=== PATIENT | male | born 1985 | race Caucasian/White ===

== ENCOUNTER 2025-01-17 18:29 | Emergency (ER) | payer BC, SELFPAY ==
--- NOTE | ~2025-01-17 | XR_ITS ---
EXAM: XR foot RT min 3V DATE: 01/17/2025 18:51 HISTORY: foreign object in R toe . COMPARISON: None. FINDINGS: Normal mineralization. No fracture or dislocation. No lytic or blastic lesion. Joint space s are maintained. No erosion or periosteal change. Nonmetallic foreign body projecting to the lateral soft tissues of the second toe, without adjacent osseous involvement. IMPRESSION: No acute osseous finding in the right foot. Foreign body in the right second toe soft tis sues, likely Golf jeff. Reviewed, dictated and finalized at location K. IMPRESSION: No acute osseous finding in the right foot. Foreign body in the rig ht second toe soft tissues, likely Golf jeff.
[2025-01-17 18:33] VITALS: BP 169/87; PULSE 84; RESP 16; TEMP 36.2; O2SAT 99
--- NOTE | 2025-01-17 18:36 | ED_ITS ---
HPI - Extremity Injury (Lower) General Chief Complaint: Extremity Injury, Lower <Kena Gaines GARMENT MANUFACTURING SUPERVISOR - Last Filed: 01/17/25 18:39> Stated Complaint: impaled toe <Kena Gaines GARMENT MANUFACTURING SUPERVISOR - Last Filed: 01/17/25 18:39> Time Seen by Provider: 01/17/25 18:35 <Kena Gaines GARMENT MANUFACTURING SUPERVISOR - Last Filed: 01/17/25 18:39> Focused HPI: Patient is a 40-year-old male who presents to the ER with a foreign object stuck in his right foot 2nd toe. He reports his children had taken his long golf tees and set them standing up on the stairs. Patient reports he ran down the stairs and stepped on one of the golf tees. At the time of examination patient endorses full range of motion. He is unsure when he last received his tetanus vaccine. Patient denies any relevant medical history. GENERAL: Well-appearing, well-nourished, and in no acute distress. HEAD: Normocephalic, atraumatic. CHEST: Clear to auscultation. ?No respiratory distress. HEART: Regular rate and rhythm.? NEURO: ?Alert and oriented x3. Patient screened in triage and initial orders placed.? ?Additional care and disposition to be based upon?diagnostic testing and treatment. <Kena Gaines GARMENT MANUFACTURING SUPERVISOR - Last Filed: 01/17/25 18:39> Focused HPI: Patient is a 40-year-old male who presents to the ER with a foreign object stuck in his right foot 2nd toe. He reports his children had taken his long golf tees and set them standing up on the stairs. Patient reports he ran down the stairs and stepped on one of the golf tees. At the time of examination patient endorses full range of motion. He is unsure when he last received his tetanus vaccine. Patient denies any relevant medical history. GENERAL: Well-appearing, well-nourished, and in no acute distress. HEAD: Normocephalic, atraumatic. CHEST: Clear to auscultation. ?No respiratory distress. HEART: Regular rate and rhythm.? NEURO: ?Alert and oriented x3. Patient screened in triage and initial orders placed.? ?Additional care and disposition to be based upon?diagnostic testing and treatment. <Chanelle Ricks PA-C - Last Filed: 01/18/25 01:32> Source: patient <Chanelle Ricks PA-C - Last Filed: 01/18/25 01:32> Mode of arrival: ambulatory <Chanelle Ricks PA-C - Last Filed: 01/18/25 01:32> Limitations: no limitations <Chanelle Ricks PA-C - Last Filed: 01/18/25 01:32> History of Present Illness HPI Narrative: Agree with above HPI <Chanelle Ricks PA-C - Last Filed: 01/18/25 01:32> Related Data Allergies/Adverse Reactions: Allergies Allergy/AdvReac Type Severity Reaction Status Date / Time No Known Allergies Allergy Mild Verified 01/17/25 18:36 <Kena Gaines APRN - Last Filed: 01/17/25 18:39> Review of Systems Review of Systems: All systems reviewed & are unremarkable except as noted in HPI. <Chanelle Ricks PA-C - Last Filed: 01/18/25 01:32> All systems reviewed & are unremarkable except as noted in HPI and below <Chanelle Ricks PA-C - Last Filed: 01/18/25 01:32> PMFSH Past Medical History Medical History: Medical History Hyperlipidemia ADD (attention deficit disorder) without hyperactivity <Kena Gaines APRN - Last Filed: 01/17/25 18:39> Surgical History Surgical History: Surgical History History of incision and drainage 2010 - right hand MRSA <Kena Gaines APRN - Last Filed: 01/17/25 18:39> Social History Social History: Social History Smoking status: Never smoker Second hand tobacco smoke exposure: No Alcohol intake: current Substance use: never Substance use type: does not use Lack of Transportation: No Lack of Food: Never True Current Housing: I Have Housing Concerned About Future Housing: No Difficulty Paying Gas/Electric Bills: No Difficulty Paying for Meds: No Currently Unemployed: No Education: Bachelor's Degree Difficulty w/ Childcare or Family Care: No Living arrangements: with family Occupation/Education: occupation Gender identity (if verbalized by the patient): Male <Kena Gaines, TRINA - Last Filed: 01/17/25 18:39> Exam Narrative: GENERAL: Well appearing, well-nourished, non-toxic, in no acute distress. HEAD: Normocephalic, atraumatic. RESPIRATORY: Airway patent, respirations nonlabored. CARDIOVASCULAR: Regular rate and rhythm. Pedal pulses intact MUSCULOSKELETAL: Moves all extremities. Plastic golf jeff punctured through R 2nd toe lateral edge. No bleeding. TTP with manipulation of jeff. Sensation intact. Capillary refill intact. SKIN: Warm, dry, normal color. NEURO: A&O X3. Speech clear. PSYCHIATRIC: Appropriate mood and affect. Normal interaction. <Chanelle Ricks PA-C - Last Filed: 01/18/25 01:32> Course DEVELOPMENTAL EDUCATION INSTRUCTOR/PA Physician Supervision This visit was performed by both a physician and an APC. I performed all aspects of the MDM as documented. I performed my own examination and the actual procedure the foreign body removal which was completed successfully without difficulty. <Cleveland Benz MD - Last Filed: 01/18/25 06:14> Vital Signs Vital signs: Vital Signs Temperature 36.2 C L 01/17/25 18:33 Pulse Rate 84 01/17/25 18:33 Respiratory Rate 16 01/17/25 18:33 Blood Pressure 169/87 H 01/17/25 18:33 Pulse Oximetry 99 01/17/25 18:33 Temperature 36.2 C L 01/17/25 18:33 Pulse Rate 81 01/18/25 01:21 Respiratory Rate 15 01/18/25 01:21 Blood Pressure 153/82 H 01/18/25 01:21 Pulse Oximetry 99 01/18/25 01:21 <Kena Gaines, TRINA - Last Filed: 01/17/25 18:39> Vital Signs Temperature 36.2 C L 01/17/25 18:33 Pulse Rate 84 01/17/25 18:33 Respiratory Rate 16 01/17/25 18:33 Blood Pressure 169/87 H 01/17/25 18:33 Pulse Oximetry 99 01/17/25 18:33 Temperature 36.2 C L 01/17/25 18:33 Pulse Rate 81 01/18/25 01:21 Respiratory Rate 15 01/18/25 01:21 Blood Pressure 153/82 H 01/18/25 01:21 Pulse Oximetry 99 01/18/25 01:21 <MARVA Rice Last Filed: 01/18/25 01:32> Vital Signs Temperature 36.2 C L 01/17/25 18:33 Pulse Rate 84 01/17/25 18:33 Respiratory Rate 16 01/17/25 18:33 Blood Pressure 169/87 H 01/17/25 18:33 Pulse Oximetry 99 01/17/25 18:33 Temperature 36.2 C L 01/17/25 18:33 Pulse Rate 81 01/18/25 01:21 Respiratory Rate 15 01/18/25 01:21 Blood Pressure 153/82 H 01/18/25 01:21 Pulse Oximetry 99 01/18/25 01:21 <Cleveland Benz MD - Last Filed: 01/18/25 06:14> Procedures Foreign Body Removal Foreign Body #1: Foreign Body Removal Date: 01/18/25 <MARVA Rice Last Filed: 01/18/25 01:32> Foreign Body Removal Time: 00:30 <MARVA Rice Last Filed: 01/18/25 01:32> Time Out Performed: yes <MARVA Rice Last Filed: 01/18/25 01:32> Site: right and foot (2nd toe) <MARVA Rice Last Filed: 01/18/25 01:32> Description of foreign body: other (golf jeff) <MARVA Rice Last Filed: 01/18/25 01:32> Sedation/Analgesia: none <MARVA Rice Last Filed: 01/18/25 01:32> Technique: manual removal <MARVA Rice Last Filed: 01/18/25 01:32> Confirmed by:: direct visualization <MARVA Rice Last Filed: 01/18/25 01:32> Complications: none <MARVA Rice Last Filed: 01/18/25 01:32> Post-procedure exam: awake, alert, normal BP, normal HR and normal O2 sat <MARVA Rice Last Filed: 01/18/25 01:32> Neurovascular: normal distal pulse, normal capillary fill, distal light touch sensation intact, distal motor function normal, no signs of compartment syndrome and no change from pre-procedure <MARVA Rice Last Filed: 01/18/25 01:32> Nerve Block Nerve Block 1: Nerve block date: 01/18/25 <MARVA Rice Last Filed: 01/18/25 01:32> Nerve block time: 00:10 <MARVA Rice Last Filed: 01/18/25 01:32> Local Anesthetic: lidocaine 1% <MARVA Rice Last Filed: 01/18/25 01:32> Amount of anesthesia used (mL): 4 <MARVA Rice Last Filed: 01/18/25 01:32> Side: right <MAVRA Rice Last Filed: 01/18/25 01:32> Nerve Blocks: digital (2nd toe) <MARVA Rice Last Filed: 01/18/25 01:32> Procedure Successful: Yes <MARVA Rice Last Filed: 01/18/25 01:32> Patient Tolerated Procedure: well and no complications <MARVA Rice Last Filed: 01/18/25 01:32> Complications: none <MARVA Rice Last Filed: 01/18/25 01:32> MDM - Extremity Injury (Lower) MDM Narrative Medical decision making narrative: Patient neurovascularly intact. X-ray showing soft tissue foreign body. No evidence of osseous abnormality. Digital nerve block was performed. Foreign body was removed with gentle manipulation. Patient did have small amount of bleeding afterwards, TXA soaked gauze applied with adequate hemostasis. No obvious vascular injury. Tetanus was updated in the ED. Patient will be started on Keflex for antibiotic prophylaxis given puncture wound. Given wound care instructions and strict return precautions. Patient in agreement with plan. Discharged in stable condition. <MARVA Rice Last Filed: 01/18/25 01:32> Medical Records Attestation: I reviewed the patient's medical records. <Chanelle Ricks PA-C - Last Filed: 01/18/25 01:32> Imaging Data Attestation: I personally reviewed and interpreted this imaging study as follows: <MARVA Rice Last Filed: 01/18/25 01:32> Radiologist's impression: ITS Impressions Foot X-Ray 01/17/25 19:54 IMPRESSION: No acute osseous finding in the right foot. Foreign body in the right second toe soft tissues, likely Golf jeff. <MARVA Rice Last Filed: 01/18/25 01:32> Discharge Plan Discharge Clinical Impression: Foreign body of toe of right foot Qualifiers: Encounter type: initial encounter Qualified Code(s): S90.454A - Superficial foreign body, right lesser toe(s), initial encounter Puncture wound of toe of right foot Qualifiers: Encounter type: initial encounter Qualified Code(s): S91.139A - Puncture wound without foreign body of unspecified toe(s) without damage to nail, initial encounter <Kena Gaines APRN - Last Filed: 01/17/25 18:39> Patient Disposition: Home <Kena Gaines APRN - Last Filed: 01/17/25 18:39> Condition: Stable <Kena Gaines APRN - Last Filed: 01/17/25 18:39> Instructions: Antibiotic Form, Soft Tissue Foreign Body (ED), Puncture Wound (ED) <Kena Gaines APRN - Last Filed: 01/17/25 18:39> Additional Instructions: Take antibiotics as prescribed. Keep wound clean and bandaged. Follow up with your primary care doctor for further evaluation if needed. Recommend Tylenol/ibuprofen as needed for pain. Return for new or worsening concerns. <Kena Gaines APRN - Last Filed: 01/17/25 18:39> Patient Language: Gabonese <Kena Gaines APRN - Last Filed: 01/17/25 18:39> Prescriptions: New cephalexin 500 mg capsule 500 mg PO Q6H 7 Days Qty: 28 0RF No Action dextroamphetamine-amphetamine [Adderall] 10 mg tablet 10 mg PO .Q 2PM Qty: 30 0RF dextroamphetamine-amphetamine [Adderall] 20 mg tablet 20 mg PO DAILY Qty: 30 0RF <Kena Gaines APRN - Last Filed: 01/17/25 18:39> Follow-up/Referrals: Aixa Powell MD [Primary Care Provider] - <Kena Gaines APRN - Last Filed: 01/17/25 18:39> Time of Disposition: 00:43 <Kena Gaines APRN - Last Filed: 01/17/25 18:39> 00:43 <Chanelle Ricks PA-C - Last Filed: 01/18/25 01:32> 00:43 <Cleveland Benz MD - Last Filed: 01/18/25 06:14>
[2025-01-17] MEDS: TETANUS,DIPHTHERIA,AC PERTUSSIS ADULT (0.5 ML) BOOSTRIX IM (23:14)
[2025-01-18] MEDS: SODIUM CHLORIDE 0.9% IV 50 ML, TRANEXAMIC ACID 1,000 MG TOPICAL (01:00)
[2025-01-18] MEDS: CEPHALEXIN 500 MG CAPSULE PO (01:00)
[2025-01-18 01:20] VITALS: BP 153/82; PULSE 81; RESP 15; O2SAT 99
[2025-01-18 01:21] VITALS: BP 153/82; PULSE 81; RESP 15; O2SAT 99
== END 2025-01-18 01:23 | disposition home or self-care (01) ==
PROVIDERS: Emergency Provider Physician Assistant; PCP Family Medicine
DX: S91.144A Puncture wound with foreign body of right lesser toe(s) without damage to nail, initial encounter (principal); W45.8XXA Other foreign body or object entering through skin, initial encounter; E78.5 Hyperlipidemia, unspecified; F98.8 Other specified behavioral and emotional disorders with onset usually occurring in childhood and adolescence; Z23 Encounter for immunization
CPT/HCPCS: 73630; 90471; 90715; 99283; A9270; J2003